=== PATIENT | female | born 1970 | race Caucasian/White ===

== ENCOUNTER 2019-11-26 22:20 | Outpatient (REF) | payer OTHER, SELFPAY ==
[2019-11-26 22:07] LABS: Abs Immature Grans 0.04 10^3/uL (0.0-0.06); Absolute Basophil Count 0.02 10^3/uL (0.0-0.2); Absolute Eosinophil Count 0.13 10^3/uL (0.0-0.7); Basophils % 0.2; Eosinophils % 1.1; HCT 38.6 % (36.0-46.0); HGB 12.9 g/dL (11.2-15.7); Immature Grans % 0.3; Lymphocytes % 22.7; MCH 29.4 pg (27.0-33.0); MCHC 33.4 % (32.0-36.0); MCV 87.9 fL (80-95); MPV 10.2 fL (8.0-11.0); Neutrophils % 70.7; Nucleated RBC 0 %; Platelet Count 398 10^3/uL (130-400); RBC 4.39 10^6/uL (3.93-5.22); RDW 11.9 % (11.7-14.6); RDW-SD 38.5 fL
[2019-11-26 22:09] LABS: Absolute Neutrophil Count 8.41 10^3/uL (1.2-6.7)
[2019-11-26 22:26] LABS: ALT 29 U/L (14-59); AST 13 U/L (15-37); Albumin 3.8 g/dL (3.4-5.0); Alkaline Phosphatase 102 U/L (46-116); Anion Gap 9.7 mmol/L (3-11); BUN 9 mg/dL (7-18); Bilirubin, Total 0.3 mg/dL (0.2-1.0); CO2 26.3 mmol/L (21.0-32.0); Calcium 8.9 mg/dL (8.5-10.1); Chloride 102 mmol/L (98-107); Glucose 176 mg/dL (74-106); Magnesium 1.9 mg/dL (1.8-2.4); Potassium 3.4 mmol/L (3.5-5.1); Sodium 138 mmol/L (136-145); TSH (W/Ref FT4) 2.25 uIU/mL (0.36-3.74); Total Protein 7.3 g/dL (6.4-8.2)
[2019-11-28 10:20] LABS: Lyme Ab w Rflx to Lyme Confirm Negative (Negative)
[2019-11-29 19:44] LABS: Anaplasma phagocytophilum Negative (Negative); B. miyamotoi PCR Negative (Negative); Babesia divergens/MO-1 Negative (Negative); Babesia duncani Negative (Negative); Babesia microti Negative (Negative); Ehrlichia chaffeensis Negative (Negative); Ehrlichia ewingii/canis Negative (Negative); Ehrlichia muris eauclairensis Negative (Negative)
== END 2019-11-26 22:40 ==
LOC: LBN 22:20
PROVIDERS: Visit Provider Physician Assistant
DX: R20.0 Anesthesia of skin (principal)
CPT/HCPCS: 80053; 87798; 83735; 84443; 85025; 86618

== ENCOUNTER 2020-02-12 01:08 | Outpatient (CLI) | payer OTHER, SELFPAY ==
--- NOTE | 2020-02-12 10:41 | DI.MAMMO_ITS ---
EXAM: MG MAMMO SCREENING CLINICAL HISTORY: screening.Z12.39. TECHNIQUE: Bilateral full field digital CC and MLO mammographic images were obtained with 3D tomosyn thesis and utilizing computer aided detection (CAD). COMPARISON: Prior mammograms performed in 2010. No other mammograms for comparison. FINDINGS: There are no new dominant masses nor malignant appearing microcalcification groups. There is no new architectural distortion nor skin thickening-retraction. IMPRESSION: No radiographic evidence of malignancy. BI-RADS Category 1 - Negative Breast Density - Category B - Scattered areas of fibroglandular density Breast density Category C or D implies that the patient has dense breast tissue. Dense breast tissue can make it harder to find cancer on a mammogram. Dense breast tissue is also associated with an incr eased risk of breast cancer. This information about the result of the mammogram report was provided to the patient to raise their awareness. Use this report when you speak with the patient about their risks for breast cancer, which includes their family history. At that time, you may recommend additional screening tests (Ultrasoun d or MRI) as these tests may add significant information. A negative radiographic report should not delay biopsy if a dominant or clinically suspicious mass is present. Up to ten percent of cancers are not identified on mammography. A negative report may reinforce clinical impression. Adenosis and dense breasts may obscure an underlying neoplasm. False positive reports average 6 to 10%. Patient will receive a letter notifying them of these results.
== END 2020-02-12 01:28 ==
DX: Z12.31 Encounter for screening mammogram for malignant neoplasm of breast (principal)
CPT/HCPCS: 77063; 77067

== ENCOUNTER 2020-02-20 03:31 | Outpatient (CLI) | payer OTHER, SELFPAY ==
[2020-02-22 19:04] LABS: COVID-19 RT-PCR Result NEGATIVE (Negative)
== END 2020-02-20 03:51 ==
PROVIDERS: Visit Provider Student in an Organized Health Care Education/Training Program
DX: Z11.59 Encounter for screening for other viral diseases (principal); Z01.818 Encounter for other preprocedural examination
CPT/HCPCS: U0003

== ENCOUNTER 2020-02-25 12:34 | Day surgery (SDC) | payer OTHER, SELFPAY ==
[2020-02-25 12:49] VITALS: BP 129/84; PULSE 76; RESP 18; TEMP 36.5; O2SAT 98
[2020-02-25] MEDS: Lactated Ringers 1,000 ML 80 ML IV (13:10)
--- NOTE | 2020-02-25 13:53 | W.PM.DSUDISC ---
Documented by User: FREEMAN Evans 02/25/20 13:59 Discharge Plan Disposition Patient Disposition: HOME Condition: Good Discharge Details Attending Provider: Neil Kerns Primary Care Provider: Emiliana Baird Home Meds and New Rx's Prescriptions: New ibuprofen 600 mg tablet 600 mg PO TID PRN (Reason: pain) Qty: 30 RF: 0 acetaminophen 500 mg capsule 1,000 mg PO Q8H PRN PRNQty: 90 RF: 0 Continued omeprazole 20 mg capsule,delayed release(DR/EC) 20 mg PO DAILY Qty: 90 RF: 1 calcium carbonate [Tums] 200 mg calcium (500 mg) tablet,chewable 200 mg PO BID PRNRF: 0 Discontinued ibuprofen 200 mg capsule 400 mg PO TID PRNRF: 0 Discharge Instructions Stand Alone Forms: Luis F Burrell Tunnel Release Referrals: Neil Kerns MD [ [facility] STAFF PHYSICIAN] - Activity:: Activity as Tolerated Remove Dressings/Wound Care:: 48 hours Shower/Bathe:: 48 hours Diet:: As Tolerated Discharge Orders Discharge Orders: Discharge Order (Routine); Ordered 02/25/20 Ordered By: Nicanor Borges DS: Diagnosis Discharge Diagnosis (1) Left carpal tunnel syndrome: Status: Acute Documented by User: Neil Kerns MD 02/25/20 14:01 Discharge Plan Disposition Patient Disposition: HOME Condition: Good Discharge Details Attending Provider: Neil Kerns Primary Care Provider: Emiliana Baird Home Meds and New Rx's Prescriptions: New ibuprofen 600 mg tablet 600 mg PO TID PRN (Reason: pain) Qty: 30 RF: 0 acetaminophen 500 mg capsule 1,000 mg PO Q8H PRN PRNQty: 90 RF: 0 Continued omeprazole 20 mg capsule,delayed release(DR/EC) 20 mg PO DAILY Qty: 90 RF: 1 calcium carbonate [Tums] 200 mg calcium (500 mg) tablet,chewable 200 mg PO BID PRNRF: 0 Discontinued ibuprofen 200 mg capsule 400 mg PO TID PRNRF: 0 Discharge Instructions Stand Alone Forms: Luis F Burrell Tunnel Release Referrals: Neil Kerns MD [ [facility] STAFF PHYSICIAN] - Activity:: Activity as Tolerated Remove Dressings/Wound Care:: 48 hours Shower/Bathe:: 48 hours Diet:: As Tolerated Discharge Orders Discharge Orders: Discharge Order (Routine); Ordered 02/25/20 Ordered By: Nicanor Borges
[2020-02-25] MEDS: ceFAZolin 2 GM/50 ML BAG IVPB (14:07)
[2020-02-25] MEDS: Sodium Bicarbonate 50 MEQ/50 ML VIAL (14:17)
--- NOTE | 2020-02-25 14:47 | W.PM.OP ---
Date of service: 02/25/20 Time of Service: 14:48 Operative Note Operative Note DATE OF PROCEDURE: 02/25/20 PRE-OP DIAGNOSIS: Left Carpal Tunnel Syndrome POST-OP DIAGNOSIS: same PROCEDURE: Left Endoscopic Carpal Tunnel Release SURGEON: Neil Kerns ANESTHESIA: GETMarilynn ESTIMATED BLOOD LOSS: 0 PATHOLOGY: none sent TOURNIQUET TIME: 4 COMPLICATIONS: None Patient was transported to: same day Patient's condition: stable Indications: I have seen Mary Carmen in clinic for symptoms of carpal tunnel syndrome. The numbness, tingling, and pain limited function. Clinical exam findings confirmed the diagnosis of carpal tunnel syndrome. Nonoperative measures such as bracing, time, activity modifications had been tried but disability and pain persisted. I discussed carpal tunnel release with the patient. I reviewed the risks of the procedure to include, but not limited to, bleeding, infection, pain, stiffness, incomplete release, damage to nerves or vessels, persistent numbness, recurrence. Despite these risks, the patient elected to proceed. Findings: There was tightened carpal tunnel. This was dilated and released successfully with the endoscopic with increased space within the tunnel. The antebrachial fascia was released proximally freeing the median nerve at the wrist. Procedure Description: Mary Carmen was greeted in the preoperative holding area where the correct side was identified and marked. The consent was reviewed with the patient and signed. The history and physical was updated. All questions were answered. She was taken back to the operating room. The patient was placed into the supine position on the operating room table with the left arm on an arm board. A nonsterile tourniquet was placed high onto the arm. All bony prominences were well padded. Prophylactic antibiotics in the form of Cefazolin were administered. The left arm was then prepped with Chloraprep and draped in a standard fashion with stockinette and extremity drape. A timeout to confirm correct identity, side and site, procedure, allergies, anesthesia, and medical concerns was performed. The surgical site was marked in the volar wrist creases in line with the radial border of the fourth ray. This area was anesthetized with approximately 6cc of 1% Lidocaine. The limb was then exsanguinated with an Esmarch. The skin was incised with a 15 blade, approximately 1cm. The skin only was cut and the deeper tissue was dissected bluntly with a tenotomy scissor, avoiding passing nerve and venous structures. The fascia was penetrated and opened bluntly. A two-prong skin hook was placed under this proximal fascial edge. A series of hamate finders were used to identify and dilate the carpal tunnel. Synovial elevator was used to free synovial attachments to the underside of the transverse carpal ligament. My thumb was kept in the palm to lucille the distal extent of the carpal tunnel and correctly position the hand. The Microaire endoscope was inserted without difficulty and without resistance. Excellent visualization showed horizontally running fibers of the transverse carpal ligament (TCL). The distal extent of the TCL was visualized and the end of the scope palpated with the thumb. The blade was elevated and withdrawn from distal to proximal. The TCL was split into two flaps. The endoscope was reinserted to confirm complete release and any remnant ligament was incised. The scope was withdrawn and the proximal aspect of the carpal tunnel was grossly inspected and appeared release with the median nerve visible. The antebrachial fascia at the level of the wrist was then freed from the overlying skin and then the underlying median nerve with blunt dissection. This was transected longitudinally for about 3cm proximal to the wrist incision. The wound was then irrigated with easy flow of irrigant distally and proximally. The incision was closed with a single 4-0 Nylon suture. The wound was dressed with Xeroform, Gauze, Kerlix and Roberto. The tourniquet was deflated with the initial dressing and held with some pressure. Blood flow returned easily to all digits with capillary refill less than 2 seconds. The patient tolerated the procedure well and was returned to the Same Day Surgery area in a stable condition suffering no known complication.
[2020-02-25 14:54] VITALS: BP 112/65; PULSE 83; RESP 17; TEMP 36.2; O2SAT 99
== END 2020-02-25 15:25 | disposition home or self-care (01) ==
PROVIDERS: Visit Provider Student in an Organized Health Care Education/Training Program
PROC: 01N54ZZ Release Median Nerve, Percutaneous Endoscopic Approach (ICD-10-PCS; CPT 29848; principal; 2020-02-25 14:00)
DX: G56.02 Carpal tunnel syndrome, left upper limb (principal); K21.9 Gastro-esophageal reflux disease without esophagitis
CPT/HCPCS: 29848; J0690; J1885; J2250; J2405; J2704

== ENCOUNTER 2021-01-17 00:25 | Outpatient (CLI) | payer OTHER, SELFPAY ==
--- NOTE | 2021-01-17 12:54 | DI.MAMMO_ITS ---
Exam(s) MAMMO SCREENING EXAM: MAMMO SCREENING CLINICAL HISTORY: screening,Z12.39 TECHNIQUE: Bilateral full field digital CC and MLO mammographic images were obtained with 3D tomosyn thesis and utilizing computer aided detection (CAD). COMPARISON: Available for comparison. FINDINGS: Masses/Architectural Distortion: None seen. Microcalcifications: No suspicious pleomorphic-type are seen. Skin Thickening/Nipple Retraction: None. IMPRESSION: 1. No significant interval change with no specific features of malignancy noted. 2. Unless there is more urgent need, screening mammography is recommended, as per [employer] guidelines. BI-RADS Category 1 - Negative Breast Density - Category B - Scattered areas of fibroglandular density Breast density category C or D implies that the patient has dense breast tissue. Dense breast tissue is very common and is not abnormal but dense breast tissue can make it harder to find cancer on a ma mmogram. Also, dense breast tissue may increase their breast cancer risk. This information about the result of the mammogram report was provided to the patient to raise their awareness. Use this report when you speak with the patient about their risks for breast cancer, which includes their family hist ory. At that time, you may recommend for more screening tests (Ultrasound or MRI) as they might be us eful based on their risk. A negative radiographic report should not delay biopsy if a dominant or clinically suspicious mass is present. Up to ten percent of cancers are not identified on mammography. A negative report may reinforce clinical impression. Adenosis and dense breasts may obscure an underlying neoplasm. False positive reports average 6 to 10%. Patient will receive a letter notifying them of these results.
== END 2021-01-17 00:45 ==
DX: Z12.31 Encounter for screening mammogram for malignant neoplasm of breast (principal)
CPT/HCPCS: 77063; 77067

== ENCOUNTER 2021-01-21 04:08 | Outpatient (CLI) | payer OTHER, SELFPAY ==
[2021-01-21 08:55] LABS: Albumin 3.8 g/dL (3.4-5.0); BUN 15 mg/dL (7-18); CREATININE 0.6 mg/dL (0.55-1.02); Calcium 9.1 mg/dL (8.5-10.1); Calculated LDL 134 mg/dL (<100); Cholesterol 195 mg/dL (<200); Glucose 106 mg/dL (74-106); HDL Cholesterol 52 mg/dL (40-60); Total Protein 7.4 g/dL (6.4-8.2); Triglyceride 46 mg/dL (<150)
[2021-01-21 08:56] LABS: Alkaline Phosphatase 104 U/L (46-116); Anion Gap 8.8 mmol/L (3-11); Bilirubin, Total 0.2 mg/dL (0.2-1.0); CO2 27.2 mmol/L (21.0-32.0); Chloride 107 mmol/L (98-107); Potassium 4.2 mmol/L (3.5-5.1); Sodium 143 mmol/L (136-145)
[2021-01-21 08:57] LABS: ALT 50 U/L (14-59); AST 16 U/L (15-37)
== END 2021-01-21 04:09 | disposition home or self-care (01) ==
LOC: LBO 04:08
DX: Z13.220 Encounter for screening for lipoid disorders (principal); Z00.00 Encounter for general adult medical examination without abnormal findings
CPT/HCPCS: 36415; 80053; 80061

== ENCOUNTER → 2022-01-23 01:49 | Outpatient (CLI) | payer OTHER, SELFPAY ==
--- NOTE | 2022-01-23 15:05 | DI.MAMMO_ITS ---
Exam(s) MAMMO SCREENING EXAM: MAMMO SCREENING CLINICAL HISTORY: screening,Z12.39 TECHNIQUE: Mammograms were interpreted according to the usual protocol including computer analysis w [employer] CAD system, tomosynthesis and C-view imaging. COMPARISON: 2019 and 2020 FINDINGS: The breasts are composed of scattered fibroglandular densities, Breast Density category B. No suspicious masses or suspicious microcalcifications are seen. No skin thickening or abnormal axillary lymph nodes are seen. There has been no significant change from prior exams. IMPRESSION: BI-RADS Category 1, Negative mammogram Yearly screening mammography is recommended. Breast Density - Category B, scattered fibroglandular densities. A negative radiographic report should not delay biopsy if a dominant or clinically suspicious mass is present. Up to ten percent of cancers are not identified on mammography. A negative report may reinforce clinical impression. Adenosis and dense breasts may obscure an underlying neoplasm. False positive reports average 6 to 10%. Patient will receive a letter notifying them of these results.
== END ==
PROVIDERS: PCP Nurse Practitioner Family; Visit Provider Emergency Medicine
DX: Z12.31 Encounter for screening mammogram for malignant neoplasm of breast (principal)
CPT/HCPCS: 77063; 77067

== ENCOUNTER 2022-03-20 03:17 | Outpatient (CLI) | payer OTHER, SELFPAY ==
[2022-03-20 13:30] LABS: ALT 35 U/L (14-59); AST 19 U/L (15-37); Alkaline Phosphatase 109 U/L (46-116); Anion Gap 9.1 mmol/L (3-11); BUN 17 mg/dL (7-18); Bilirubin, Total 0.2 mg/dL (0.2-1.0); CO2 26.9 mmol/L (21.0-32.0); CREATININE 0.8 mg/dL (0.55-1.02); Calcium 9.3 mg/dL (8.5-10.1); Chloride 104 mmol/L (98-107); Estimated GFR 89.71 (mL/min/1.73m2); Glucose 113 mg/dL (74-106); Potassium 3.9 mmol/L (3.5-5.1); Sodium 140 mmol/L (136-145); TSH (W/Ref FT4) 3.13 uIU/mL (0.36-3.74); Total Protein 8.2 g/dL (6.4-8.2)
== END 2022-03-20 03:18 | disposition home or self-care (01) ==
LOC: LBO 03:17
PROVIDERS: PCP Nurse Practitioner Family; Visit Provider Nurse Practitioner Family
DX: E66.9 Obesity, unspecified (principal); K21.9 Gastro-esophageal reflux disease without esophagitis; L65.9 Nonscarring hair loss, unspecified; N32.81 Overactive bladder; R03.0 Elevated blood-pressure reading, without diagnosis of hypertension
CPT/HCPCS: 36415; 80053; 84443

== ENCOUNTER 2022-03-24 11:20 | Day surgery (SDC) | payer OTHER, SELFPAY ==
--- NOTE | 2022-03-23 20:44 | W.PM.DSUDISC ---
Date of service: 03/24/22 Time of Service: 13:24 Discharge Plan Disposition Patient Disposition: Home Condition: Good Discharge Details Reason For Visit: EGD and colonoscopy Attending Provider: Manuel Merrill Primary Care Provider: Briana Mosqueda Home Meds and New Rx's Prescriptions: Continued oxybutynin chloride 15 mg tablet extended release 24hr 15 mg PO DAILY Qty: 90 3RF Hold Instructions: Home Medication placed on hold at Doctor's office Rx Instructions: REPLACES mirabegron famotidine 20 mg tablet 20 mg PO BID Qty: 180 3RF Discontinued bisacodyl [Dulcolax (bisacodyl)] 5 mg tablet,delayed release (DR/EC) 5 mg PO ONCE Qty: 4 0RF Rx Instructions: Take according to provider's instructions for colonoscopy prep. polyethylene glycol 3350 17 gram/dose powder 17 g PO ONCE Qty: 238 0RF Rx Instructions: To be taken as directed by prescriber's office for colonoscopy prep. Discharge Instructions Additional Instructions: 1. If tolerated, consume a soft, low fiber diet for 1-2 days. 2[address] Do not drive, drink alcohol, operate machinery, make critical decisions, or do activities that require coordination or balance for 24 hours. 3. Because air was put into your colon during the procedure, expelling air from your rectum (passing gas or farting) is normal. 4. You may not have a bowel movement for 1-3 days because of the colonoscopy prep. This is normal. 5. You may experience a sore throat for 24 to 48 hours. You may use throat lozenges or gargle with warm salt water to relieve the discomfort. 6. Because air was put into your stomach during the procedure, you may experience some belching. 7. Go directly to the emergency room if you notice any of the following: Develop chills (warm to touch), or if you have a thermometer and your temperature is above 101 Difficulty breathing or difficultly swallowing Persistent vomiting Severe abdominal pain, other than gas cramps Severe chest pain Black, tarry stools Any bleeding ? exceeding one tablespoon 8. Call your physician if the site where your intravenous was started becomes red, swollen, painful, and warm to touch. 9. Your physician has reviewed your pre-procedure medications. Please continue to take those medications as previously ordered. You will be given specific information/education regarding any changes to your medications before leaving. Activity:: Activity as Tolerated Diet:: As Tolerated Discharge Orders Discharge Orders: Discharge Order (Routine); Ordered 03/23/22 Ordered By: Manuel Merrill DS: Diagnosis Discharge Diagnosis (1) GERD (gastroesophageal reflux disease): Status: Chronic Asessment and Plan: Mary Carmen, your stomach looked very normal, with no signs of inflammation. I did perform some random biopsies to rule out potential sources of gastritis. I will call you when I have those results available. (2) Screening for colon cancer: Status: Acute Asessment and Plan: Your colonoscopy was totally normal. You will need a follow-up colonoscopy in 10 years
--- NOTE | 2022-03-23 20:46 | ENDO_ITS ---
Date of service: 03/24/22 Time of Service: 13:14 Endoscopy Report DATE OF PROCEDURE: 03/24/22 PRE-OP DIAGNOSIS: GERD and sceening colonoscopy POST-OP DIAGNOSIS: other (Normal EGD, normal colonoscopy) PROCEDURE: EGD and colonoscopy SURGEON: Manuel Merrill ANESTHESIA TYPE: General:No Airway ESTIMATED BLOOD LOSS: 15 PATHOLOGY: other (Gastric antral and body biopsies) COMPLICATIONS: None DISPOSITION: same day INDICATIONS: Mary Carmen is a 51-year-old woman who has been experiencing dyspepsia, and mild symptoms of gastroesophageal reflux disease. Additionally, she is due for screening colonoscopy PREP: Miralax/Dulcolax PROCEDURE START TIME: 12:55 PROCEDURE END TIME: 13:14 COLONOSCOPY RETRACTION TIME: 10 FINDINGS: Normal EGD, normal colonoscopy PROCEDURE DESCRIPTION: After the initiation of monitored anesthetic care, and with the assistance of a bite block, I advanced a standard gastroscope through the mouth past the hypopharynx and into the esophagus.? Under the direct vision of the scope, I advanced down the esophagus into the stomach.? Once I entered the stomach, I performed a brief inspection, followed by retroflexion towards the gastric cardia.? This appeared normal.? After that, I gently advanced the scope around t he incisura angularis and examined the pylorus.? This also appeared normal.? Next, I advanced the scope through the pylorus into the duodenum.? The mucosa was pink and healthy appearing.? There were no abnormalities.? I was able to visualize bile draining into the duodenum through the ampulla Vater. ?Next, I began retracting the endoscope.? I then gently desufflated some of the stomach, and withdrew the endoscope into the distal esophagus. The Z-line was totally normal-appearing, and the GE junction was right around 34 cm.. ?Finally, I withdrew the scope along the length of the esophagus taking great care to examine the entirety of the mucosa.? I did not appreciate any abnormalities. 3 We then repositioned and at into the left lateral decubitus position, I began by performing an external anorectal exam.? Perineum and skin were normal, as was the anal verge.? There was evidence of external hemorrhoids.? Next, I performed a digital rectal exam.? There was a tiny fissure in the posterior position.? Next, I advanced a colonoscope into the rectal vault.? I performed retroflexion.? This was normal.? Using insufflation, I then advanced the colonoscope beyond the rectal folds and into the sigmoid colon before advancing towards the cecum.? The quality of the prep was [].? The scope was noted to be in the cecum by identification of the ileocecal valve and appendiceal orifice.? I then began withdrawing the colonoscope using repeated irrigation as necessary for full evaluation of the colonic mucosa. ?Once the scope was withdrawn to the level of the rectum, great care was taken to examine portions of the rectal folds.? I did not see any evidence of any polyps, malignancy, diverticulosis, or other pathology. Finally, the scope was withdrawn and the patient was brought to the same-day surgery recovery unit as the anesthetic wore off. ?The findings and instructions were shared with the patient prior to discharge.
[2022-03-24 11:27] VITALS: BP 119/75; PULSE 85; RESP 16; TEMP 36.7; O2SAT 97
[2022-03-24] MEDS: Lactated Ringers 1,000 ML 80 ML IV (11:46)
--- NOTE | 2022-03-24 12:11 | W.ANESPRE ---
General Info Date of Service Date Performed: 03/24/22 Height: 5 ft 3 in Weight: 79.2 kg Body Mass Index (BMI): 30.9 Surgical Procedure: Operation Date: 03/24/22 14:35 Proposed Procedure Side Surgeon p Colonoscopy/Gastroscopy Manuel Merrill MD Meds Allergies and Home Medications Allergies Allergy/AdvReac Type Severity Reaction Status Date / Time No Known Allergies Allergy Verified 03/23/22 13:47 Home Medication Medication Instructions Recorded oxybutynin chloride 15 mg 15 mg PO DAILY #90 tabs 12/30/21 tablet,extended release 24 hr famotidine 20 mg tablet 20 mg PO BID #180 tabs 02/27/22 Current Visit Medications: Current Medications Generic Name Dose Route Start Last Admin Trade Name Freq PRN Reason Stop Dose Admin Hyoscyamine Sulfate 0.125 mg 03/23/22 20:47 Hyoscyamine 0.125 Mg Sl/Oral/Chew SL DIRECTED PRN Ringer's Solution 1,000 mls @ 80 mls/hr 03/24/22 06:00 03/24/22 11:46 IV 03/24/22 23:59 80 mls/hr INFUSION JAIME Administration IV Miscellaneous Supplies 1 each 03/24/22 06:00 Iv Access IV 03/24/22 23:59 DIRECTED JAIME Ondansetron HCl 4 mg 03/23/22 20:47 Ondansetron 4 Mg/2 Ml Vial IVP Q4H PRN PRN Nausea / Vomiting Sodium Chloride 0 ml 03/24/22 06:00 Normal Saline Flush 10 Ml Syr IV 03/24/22 23:59 PRN PRN Sodium Chloride 0 ml 03/24/22 06:00 Normal Saline 10 Ml Vial IJ 03/24/22 23:59 DIRECTED PRN Sterile Water 0 ml 03/24/22 06:00 Water,Injection,Sterile 10 Ml Vial IJ 03/24/22 23:59 DIRECTED PRN PFSH Active Problems Active Problems: Problem Status Onset Code Bilateral hand numbness R20.0 Alopecia L65.9 GERD (gastroesophageal reflux disease) K21.9 Right carpal tunnel syndrome G56.01 Urinary incontinence R32 Obesity (BMI 30-39.9) E66.9 Elevated BP without diagnosis of hypertension R03.0 OAB (overactive bladder) N32.81 Screening for colon cancer Z12.11 Medical History Medical History Microscopic hematuria Pyloric ulcer associated with Helicobacter pylori (02/08/01) Surgical History Surgical History (Updated 03/24/22 @ 11:38 by Kirsty Lundberg RN) History of carpal tunnel release History of carpal tunnel surgery of left wrist (02/25/20) s/p left ECTR Hysterectomy, Laproscopic (07/25/12) DR. JOHNSON Tobacco Smoking/Tobacco Use Status: Never Passive smoking exposure: Yes Second hand exposure: Yes Alcohol Alcohol Intake: current Alcohol intake frequency: a few times a week Alcohol type: wine Substance Use Substance use: Never Substance use type: does not use Counseling provided: none Vital Signs and Lab Results Vital Signs Most Recent Vital Signs in EMR: Most Recent Vital Signs Temp Pulse Resp BP Pulse Ox 36.7 C 85 16 119/75 97 03/24/22 11:27 03/24/22 11:27 03/24/22 11:27 03/24/22 11:27 03/24/22 11:27 Lab Results Blood Type / Crossmatch: No Data to Display Complete Blood Count: No Data to Display Complete Metabolic Panel: Sodium 140 mmol/L (136-145) 03/20/22 12:51 Potassium 3.9 mmol/L (3.5-5.1) 03/20/22 12:51 Chloride 104 mmol/L (98-107) 03/20/22 12:51 Carbon Dioxide 26.9 mmol/L (21.0-32.0) 03/20/22 12:51 BUN 17 mg/dL (7-18) 03/20/22 12:51 Creatinine 0.8 mg/dL (0.55-1.02) 03/20/22 12:51 Est GFR (CKD-EPI 2020) 89.71 (mL/min/1.73m2) 03/20/22 12:51 Calcium 9.3 mg/dL (8.5-10.1) 03/20/22 12:51 Albumin 4.0 g/dL (3.4-5.0) 03/20/22 12:51 Glucose 113 mg/dL (74-106) H 03/20/22 12:51 Liver Function Panel: Alanine Aminotransferase (ALT/SGPT) 35 U/L (14-59) 03/20/22 12:51 Aspartate Amino Transf (AST/SGOT) 19 U/L (15-37) 03/20/22 12:51 Coagulation Panel: No Data to Display Cardiac Panel: No Data to Display Arterial Blood Gas: No Data to Display Venous Blood Gas: No Data to Display Pancreas Panel: No Data to Display Thyroid Panel: Thyroid Stimulating Hormone (TSH) 3.13 uIU/mL (0.36-3.74) 03/20/22 12:51 Infectious Disease: No Data to Display Blood Cultures: No Data to Display Toxicology Panel: No Data to Display Panel: No Data to Display Anesthesia Assessment and Plan Anesthesia History Personal History: No History of Anesthesia Complications Family History: No Family History of Anesthesia Complications Exercise Tolerance Exercise Tolerance: Metabolic Equivalents>4 Pertinent Negatives Pertinent Negatives: No Symptoms of GERD, No Major Cardiovascular Symptoms or Complaints and No Major Pulmonary Symptoms or Complaints Cardiac & Pulmonary Exam Cardiac Exam: Normal S1/S2 Heart Sounds Pulmonary Exam: Clear Bilateral Breath Sounds Implantable Cardiac Device Does patient have a Pacemaker or an ICD?: No Airway Exam Known Difficult Airway: No Mallampati Class: 1 Mouth Opening: Normal (> 3cm) Thyromental Distance: Greater than 3 cm Neck Range of Motion: Full ROM Neck Circumference: Normal Teeth Condition: Normal Dentition ASA Classification ASA Score: ASA 2 Emergency Case?: No NPO Status NPO Status: NPO Clears >2 hours, Solids >8 hours Status Status: History of Hysterectomy Anesthesia Plan Resuscitation Status: Full Code Anesthesia Technique: General Anesthesia Airway Planned: Natural Airway Monitors Used: Standard Monitors
[2022-03-24 12:15] VITALS: BMI 30.9
--- NOTE | 2022-03-24 12:51 | STOM_PTH ---
PATIENT: Mary Carmen Tsang LOC: [facility] U#:[id number] AGE/SX: 51/F ROOM: RE03/24/[address]: Manuel Merrill MD : 1970 BED: DIS: 03/24/2022 SPEC #: [id number] RECD: 03/24/22 13:33 STATUS: [facility] #: [id number] DARWIN: 03/24/22 12:[address]: Manuel Merrill DEPT: Surgical Specimen RECD BY: Page Can ENTERED: 03/24/22 13:35 SP TYPE: STOMACH OTHR DR: Briana Mosqueda, PARLIAMENTARY LIBRARIAN Tissues: 1 - STOMACH BIOPSY 2 - STOMACH BIOPSY Procedures: GROSS AND MICRO LEVEL 4 IMMUNOPEROXIDASE STAIN Comments: [id number]
[2022-03-24 13:24] VITALS: BP 113/63; PULSE 83; RESP 16; TEMP 36.5; O2SAT 96
[2022-03-24 13:54] VITALS: BP 117/60; PULSE 84; RESP 16; TEMP 36.7; O2SAT 96
--- NOTE | 2022-03-24 14:48 | W.ANESPOSTOP ---
Postoperative Evaluation Date, Time and Location Date Performed: 03/24/22 Time Performed: 13:56 Patient Location: Day Surgery Unit Vital Signs Most Recent Imported Vital Signs: Most Recent Vital Signs Temp Pulse Resp BP Pulse Ox 36.7 C 84 16 117/60 96 03/24/22 13:54 03/24/22 13:54 03/24/22 13:54 03/24/22 13:54 03/24/22 13:54 Pain Score Most Recent Pain Score: Most Recent Pain Score Pain Level 0 03/24/22 13:54 Assessment Mental Status: Awake (Alert & Oriented to Patient Baseline) Airway and Respiratory Function: Patent airway with normal (patient baseline) respiratory exam Cardiovascular Function: Hemodynamically Stable Hydration Status: Adequately Hydrated Nausea & Vomiting: No Nausea or Vomiting Pain: Pt. Denies Any Pain Peripheral Nerve Block: Patient did not receive a nerve block
== END 2022-03-24 14:58 | disposition home or self-care (01) ==
PROVIDERS: PCP Nurse Practitioner Family; Visit Provider Surgery
PROC: (CPT 45378; principal; 2022-03-24 14:30)
DX: K21.9 Gastro-esophageal reflux disease without esophagitis (principal); Z12.11 Encounter for screening for malignant neoplasm of colon; K64.4 Residual hemorrhoidal skin tags; K31.89 Other diseases of stomach and duodenum
CPT/HCPCS: 45378; 43239; 88305; 88361

== ENCOUNTER → 2023-02-20 01:21 | Outpatient (CLI) | payer OTHER, SELFPAY ==
--- NOTE | 2023-02-20 07:30 | DI.MAMMO_ITS ---
Exam(s) MAMMO SCREENING EXAM: MAMMO SCREENING CLINICAL HISTORY: screening,Z12.39 TECHNIQUE: Bilateral full field digital CC and MLO mammographic images were obtained with 3D tomosyn thesis and utilizing computer aided detection (CAD). COMPARISON: Available for comparison. FINDINGS: Masses/Architectural Distortion: None seen. Microcalcifications: No suspicious pleomorphic-type are seen. Skin Thickening/Nipple Retraction: None. IMPRESSION: 1. No significant interval change with no specific features of malignancy noted. 2. Unless there is more urgent need, screening mammography is recommended, as per [place] [employer] guidelines. BI-RADS Category 1 - Negative Breast Density - Category B - Scattered areas of fibroglandular density Breast density category C or D implies that the patient has dense breast tissue. Dense breast tissue is very common and is not abnormal but dense breast tissue can make it harder to find cancer on a ma mmogram. Also, dense breast tissue may increase their breast cancer risk. This information about the result of the mammogram report was provided to the patient to raise their awareness. Use this report when you speak with the patient about their risks for breast cancer, which includes their family hist ory. At that time, you may recommend for more screening tests (Ultrasound or MRI) as they might be us eful based on their risk. A negative radiographic report should not delay biopsy if a dominant or clinically suspicious mass is present. Up to ten percent of cancers are not identified on mammography. A negative report may reinforce clinical impression. Adenosis and dense breasts may obscure an underlying neoplasm. False positive reports average 6 to 10%. Patient will receive a letter notifying them of these results.
== END ==
PROVIDERS: PCP Nurse Practitioner Family; Visit Provider Nurse Practitioner Family
DX: Z12.31 Encounter for screening mammogram for malignant neoplasm of breast (principal)
CPT/HCPCS: 77063; 77067

== ENCOUNTER 2023-03-07 06:05 | Day surgery (SDC) | payer OTHER, SELFPAY ==
[2023-03-07 06:22] VITALS: BP 130/81; PULSE 87; RESP 16; TEMP 36.5; O2SAT 96
[2023-03-07] MEDS: Lactated Ringers 1,000 ML 80 ML IV (06:39)
--- NOTE | 2023-03-07 07:03 | W.ANESPRE ---
General Info Date of Service Date Performed: 03/07/23 Height: 5 ft 3 in Weight: 85 kg Body Mass Index (BMI): 33.2 Surgical Procedure: Operation Date: 03/07/23 07:40 Proposed Procedure Side Surgeon p Wrist ECTR Right Neil Kerns MD Meds Allergies and Home Medications Allergies Allergy/AdvReac Type Severity Reaction Status Date / Time No Known Allergies Allergy Verified 03/07/23 06:30 Home Medication Medication Instructions Recorded famotidine 20 mg tablet 20 mg PO BID PRN 03/06/23 Current Visit Medications: Current Medications Generic Name Dose Route Start Last Admin Trade Name Freq PRN Reason Stop Dose Admin Ringer's Solution 1,000 mls @ 80 mls/hr 03/07/23 06:00 03/07/23 06:39 IV 04/05/23 23:59 80 mls/hr INFUSION JAIME Administration Cefazolin Sodium/Dextrose 2 gm in 50 mls @ 100 mls/hr 03/07/23 06:00 Ancef Duplex IVPB 03/07/23 16:00 PREOP JAIME IV Miscellaneous Supplies 1 each 03/07/23 06:00 Iv Access IV 04/05/23 23:59 DIRECTED JAIME Sodium Chloride 0 ml 03/07/23 06:00 Normal Saline Flush 10 Ml Syr IV 04/05/23 23:59 PRN PRN Sodium Chloride 0 ml 03/07/23 06:00 Normal Saline 10 Ml Vial IJ 04/05/23 23:59 DIRECTED PRN Sterile Water 0 ml 03/07/23 06:00 Water,Injection,Sterile 10 Ml Vial IJ 04/05/23 23:59 DIRECTED PRN PFSH Active Problems Active Problems: Problem Status Onset Code Pre-diabetes R73.03 Screening for colon cancer Z12.11 OAB (overactive bladder) N32.81 Elevated BP without diagnosis of hypertension R03.0 Obesity (BMI 30-39.9) E66.9 Urinary incontinence R32 Right carpal tunnel syndrome G56.01 GERD (gastroesophageal reflux disease) K21.9 Alopecia L65.9 Bilateral hand numbness R20.0 Medical History Medical History Pyloric ulcer associated with Helicobacter pylori (02/08/01) Microscopic hematuria Surgical History Surgical History History of carpal tunnel release History of carpal tunnel surgery of left wrist (02/25/20) s/p left ECTR Hysterectomy, Laproscopic (07/25/12) DR. JOHNSON Tobacco Smoking/Tobacco Use Status: Never Passive smoking exposure: Yes Second hand exposure: Yes Alcohol Alcohol Intake: current Alcohol intake frequency: a few times a week Alcohol type: beer, wine and hard liquor Substance Use Substance use: Never Substance use type: does not use Counseling provided: none Vital Signs and Lab Results Vital Signs Most Recent Vital Signs in EMR: Most Recent Vital Signs Temp Pulse Resp BP Pulse Ox 36.5 C 87 16 130/81 96 03/07/23 06:22 03/07/23 06:22 03/07/23 06:22 03/07/23 06:22 03/07/23 06:22 Lab Results Blood Type / Crossmatch: No Data to Display Complete Blood Count: No Data to Display Complete Metabolic Panel: No Data to Display Liver Function Panel: No Data to Display Coagulation Panel: No Data to Display Cardiac Panel: No Data to Display Arterial Blood Gas: No Data to Display Venous Blood Gas: No Data to Display Pancreas Panel: No Data to Display Thyroid Panel: No Data to Display Infectious Disease: No Data to Display Blood Cultures: No Data to Display Toxicology Panel: No Data to Display Panel: No Data to Display Anesthesia Assessment and Plan Anesthesia History Personal History: No History of Anesthesia Complications Family History: No Family History of Anesthesia Complications Exercise Tolerance Exercise Tolerance: Metabolic Equivalents>4 Pertinent Negatives Pertinent Negatives: No Symptoms of GERD, No Major Cardiovascular Symptoms or Complaints and No Major Pulmonary Symptoms or Complaints Cardiac & Pulmonary Exam Cardiac Exam: Normal S1/S2 Heart Sounds Pulmonary Exam: Clear Bilateral Breath Sounds Implantable Cardiac Device Does patient have a Pacemaker or an ICD?: No Airway Exam Known Difficult Airway: No Mallampati Class: 1 Mouth Opening: Normal (> 3cm) Thyromental Distance: Greater than 3 cm Neck Range of Motion: Full ROM Neck Circumference: Normal Teeth Condition: Normal Dentition ASA Classification ASA Score: ASA 2 Emergency Case?: No NPO Status NPO Status: NPO Clears >2 hours, Solids >8 hours Status Status: History of Hysterectomy Anesthesia Plan Resuscitation Status: Full Code Anesthesia Technique: General Anesthesia Airway Planned: Natural Airway Monitors Used: Standard Monitors
[2023-03-07 07:06] VITALS: BMI 33.2
--- NOTE | 2023-03-07 07:21 | W.PM.DSUDISC ---
Date of service: 03/07/23 Time of Service: 07:23 Discharge Plan Disposition Patient Disposition: Home Condition: Good Discharge Details Reason For Visit: Right carpal tunnel syndrome Attending Provider: Neil Kerns Primary Care Provider: Briana Mosqueda Home Meds and New Rx's Prescriptions: New acetaminophen 500 mg tablet 500 mg PO Q6H PRN (Reason: pain) Qty: 60 2RF hydrocodone-acetaminophen 5-325 mg tablet 1 tab PO Q6H PRN (Reason: severe pain) Qty: 4 0RF Rx Instructions: Take one tablet up to every 6 hours as needed for severe postoperative pain Continued famotidine 20 mg tablet 20 mg PO BID PRN Discharge Instructions Stand Alone Forms: Luis F Burrell Tunnel Release Activity:: Elevate Remove Dressings/Wound Care:: 48 hours Shower/Bathe:: 48 hours Diet:: As Tolerated Discharge Orders Discharge Orders: Discharge Order (Routine); Ordered 03/07/23 Ordered By: Lia Blanton
--- NOTE | 2023-03-07 07:22 | W.PREOPHP ---
Assessment and Plan Assessment and plan (1) Right carpal tunnel syndrome: Status: Acute Assessment and plan: Mary Carmen is a 52-year-old female who has carpal tunnel syndrome about the right side. She had a previously successful left carpal tunnel release. She expresses no concerns about today's procedure. Once again I reviewed carpal tunnel release with her. I briefly discussed the technical features. I discussed the risk of the procedure to include bleeding, infection, pain, stiffness, continued numbness, recurrence of symptoms, inflammatory changes within the carpal tunnel resulting in stiffness or recurrence of symptoms. Despite these risk, she elects to proceed. History of Present Illness History of Present Illness Chief Complaint: Right Carpal Tunnel Syndrome Narrative: Mary Carmen is a 52-year-old female who has known carpal tunnel disease about the right side. She has failed other conservative treatments and is here today for carpal tunnel release. She denies any fevers or chills. No chest pain or shortness of breath. No recent illness. Review of Systems All systems reviewed & are unremarkable except as noted in HPI and below PFSH All Active Problems Pre-diabetes (Acute) Screening for colon cancer (Acute) OAB (overactive bladder) (Chronic) Elevated BP without diagnosis of hypertension (Acute) Obesity (BMI 30-39.9) (Chronic) Urinary incontinence (Acute) Right carpal tunnel syndrome (Acute) GERD (gastroesophageal reflux disease) (Chronic) Alopecia (Acute) Bilateral hand numbness (Acute) Medical History Pyloric ulcer associated with Helicobacter pylori (02/08/01) Microscopic hematuria Surgical History History of carpal tunnel release History of carpal tunnel surgery of left wrist (02/25/20) s/p left ECTR Hysterectomy, Laproscopic (07/25/12) DR. JOHNSON Family History Mother Diabetes Hyperlipidemia Brother Heart disease Hyperlipidemia Brother , 49 No problems noted. Brother No problems noted. Daughter No problems noted. Social History Smoking/Tobacco Use Status: Never Second Hand Exposure: Yes Smoking risk assessment performed?: Yes Alcohol Intake: current Alcohol Intake frequency: a few times a week Alcohol type: beer, wine and hard liquor Drug use: Never Substance use type: does not use Counseling given: No Counseling provided: none Adopted: No Caregiver/Support person: No Foster care: No Household members: family and none Housing: house Number of Children: 2 number of grandchildren: 2 Communication Needs: None Education Level: college Do you need help understanding health information?: Rarely current occupation: engineering design Pets and animals: Yes Pets and animals: dog(s) Sexually active: No Do you think of yourself as: lesbian/palma/homosexual Current gender identity: female What is your relationship status?: How often do you talk on the phone with friends or family?: three or more times per week How often do you get together with friends or relatives?: three or more times per week How often do you attend confucianist or hindu services?: decline to answer Do you belong to any clubs or organized social groups?: decline to answer Panel score (0-1 are the most socially isolated patients): 1 What type of physical activity do you participate in: walking Duration: 30-45 minutes/day Frequency: 5-6 times per week Maxine/Oriental Orthodox: None Special maxine needs: No Agree to transfusion: No Seatbelt use: always Helmet use: Yes Helmet use: always Drive intox or ride w/intox pile driver: No Working smoke detector in home: Yes Carbon monox detector in home: Yes Firearms in home: Yes Firearms unloaded and locked: Yes Do you feel safe at home: Yes Meds Allergies and Home Medications Allergies Allergy/AdvReac Type Severity Reaction Status Date / Time No Known Allergies Allergy Verified 03/07/23 06:30 Home Medications Medication Instructions Recorded Confirmed Type famotidine 20 mg tablet 20 mg PO BID PRN 03/06/23 03/07/23 History acetaminophen 500 mg tablet 500 mg PO Q6H PRN pain #60 tabs 03/07/23 Rx hydrocodone 5 mg-acetaminophen 325 1 tab PO Q6H PRN severe pain #4 03/07/23 Rx mg tablet tabs Exam Resp Effort & Inspection: normal respiratory effort Auscultation: clear to auscultation bilaterally Cardio Rate: regular rate Rhythm: regular rhythm Results Last Vital Signs Temp 36.5 C 03/07/23 06:22 Pulse 87 03/07/23 06:22 Resp 16 03/07/23 06:22 BP 130/81 03/07/23 06:22 Pulse Ox 96 03/07/23 06:22
[2023-03-07] MEDS: ceFAZolin 2 GM/50 ML BAG IVPB (07:30)
[2023-03-07] MEDS: Lidocaine 1% Multi-Dose W/EPI 1/100,000 50 ML VIAL (07:36)
[2023-03-07 07:47] VITALS: BP 116/60; PULSE 90; RESP 18; TEMP 36.3; O2SAT 95
--- NOTE | 2023-03-07 07:55 | ROE_ITS ---
Date of service: 03/07/23 Time of Service: 07:30 Operative Note Operative Note DATE OF PROCEDURE: 03/07/23 PRE-OP DIAGNOSIS: Right Carpal Tunnel Syndrome POST-OP DIAGNOSIS: same PROCEDURE: Right Endoscopic Carpal Tunnel Release SURGEON: Neil Kerns ANESTHESIA TYPE: General:No Airway Refer to Anesthesia Record ESTIMATED BLOOD LOSS: 0 PATHOLOGY: none sent TOURNIQUET TIME: 4 COMPLICATIONS: None Patient was transported to: same day Patient's condition: stable Indications: I have seen Mary Carmen in clinic for symptoms of carpal tunnel syndrome. The numbness, tingling, and pain limited function. Clinical exam findings with nerve conduction tests confirmed the diagnosis of carpal tunnel syndrome. Nonoperative measures such as bracing, time, activity modifications had been tried but disability and pain persisted. I discussed carpal tunnel release with the patient. I reviewed the risks of the procedure to include, but not limited to, bleeding, infection, pain, stiffness, incomplete release, damage to nerves or vessels, persistent numbness, recurrence. Despite these risks, the patient elected to proceed. Findings: There was tightened carpal tunnel. This was dilated and released successfully with the endoscopic with increased space within the tunnel. The antebrachial fascia was released proximally freeing the median nerve at the wrist. Procedure Description: Mary Carmen was greeted in the preoperative holding area where the correct side was identified and marked. The consent was reviewed with the patient and signed. The history and physical was updated. All questions were answered. She was taken back to the operating room. The patient was placed into the supine position on the operating room table with the right arm on an arm board. A nonsterile tourniquet was placed high onto the arm. All bony prominences were well padded. Prophylactic antibiotics in the form of Cefazolin were administered. The right arm was then prepped with Chloraprep and draped in a standard fashion with stockinette and extremity drape. A timeout to confirm correct identity, side and site, procedure, allergies, anesthesia, and medical concerns was performed. The surgical site was marked in the volar wrist creases in line with the radial border of the fourth ray. This area was anesthetized with approximately 6cc of 1% Lidocaine. The limb was then exsanguinated with an Esmarch. The skin was incised with a 15 blade, approximately 1cm. The skin only was cut and the deeper tissue was dissected bluntly with a tenotomy scissor, avoiding passing nerve and venous structures. The fascia was penetrated and opened bluntly. A two-prong skin hook was placed under this proximal fascial edge. A series of hamate finders were used to identify and dilate the carpal tunnel. Synovial elevator was used to free synovial attachments to the underside of the transverse carpal ligament. My thumb was kept in the palm to lucille the distal extent of the carpal tunnel and correctly position the hand. The MicroShopintoite e ndoscope was inserted without difficulty and without resistance. Excellent visualization showed horizontally running fibers of the transverse carpal ligament (TCL). The distal extent of the TCL was visualized and the end of the scope palpated with the thumb. The blade was elevated and withdrawn from distal to proximal. The TCL was split into two flaps. The endoscope was reinserted to confirm complete release and any remnant ligament was incised. The scope was withdrawn and the proximal aspect of the carpal tunnel was grossly inspected and appeared release with the median nerve visible. The antebrachial fascia at the level of the wrist was then freed from the overlying skin and then the underlying median nerve with blunt dissection. This was transected longitudinally for about 3cm proximal to the wrist incision. The wound was then irrigated with easy flow of irrigant distally and proximally. The incision was closed with a single 4-0 Nylon suture. The wound was dressed with Xeroform, Gauze, Kerlix and Roberto. The tourniquet was deflated with the initial dressing and held with some pressure. Blood flow returned easily to all digits with capillary refill less than 2 seconds. The patient tolerated the procedure well and was returned to the Same Day Surgery area in a stable condition suffering no known complication.
[2023-03-07 08:13] VITALS: BP 116/70; PULSE 80; RESP 16; TEMP 36.4; O2SAT 95
--- NOTE | 2023-03-07 08:35 | W.ANESPOSTOP ---
Postoperative Evaluation Date, Time and Location Date Performed: 03/07/23 Time Performed: 08:35 Patient Location: Day Surgery Unit Vital Signs Most Recent Imported Vital Signs: Most Recent Vital Signs Temp Pulse Resp BP Pulse Ox 36.4 C L 80 16 116/70 95 03/07/23 08:13 03/07/23 08:13 03/07/23 08:13 03/07/23 08:13 03/07/23 08:13 Pain Score Most Recent Pain Score: Most Recent Pain Score Pain Level 0 03/07/23 08:13 Assessment Mental Status: Awake (Alert & Oriented to Patient Baseline) Airway and Respiratory Function: Patent airway with normal (patient baseline) respiratory exam Cardiovascular Function: Hemodynamically Stable Hydration Status: Adequately Hydrated Nausea & Vomiting: No Nausea or Vomiting Pain: Pt. Denies Any Pain Peripheral Nerve Block: Patient did not receive a nerve block
== END 2023-03-07 08:36 | disposition home or self-care (01) ==
PROVIDERS: PCP Nurse Practitioner Family; Visit Provider Student in an Organized Health Care Education/Training Program
PROC: 01N54ZZ Release Median Nerve, Percutaneous Endoscopic Approach (ICD-10-PCS; CPT 29848; principal; 2023-03-07 07:30)
DX: G56.01 Carpal tunnel syndrome, right upper limb (principal)
CPT/HCPCS: 29848; J0690; J1885; J2001; J2405; J2704

== ENCOUNTER 2023-11-21 07:58 | Day surgery (SDC) | payer OTHER, SELFPAY ==
--- NOTE | 2023-11-21 07:22 | PDOC.DSDIS_ITS ---
Date of service: 11/21/23 Time of Service: 07:22 Discharge Plan Disposition Patient Disposition: Home Condition: Good Discharge Details Reason For Visit: RIF Cyst excision Attending Provider: Neil Kerns Primary Care Provider: Briana Mosqueda Home Meds and New Rx's Prescriptions: New acetaminophen 500 mg tablet 1,000 mg PO TID Qty: 90 0RF ibuprofen 600 mg tablet 600 mg PO TID PRN (Reason: pain) Qty: 90 0RF Continued famotidine 20 mg tablet 20 mg PO BID PRN Discontinued acetaminophen 500 mg tablet 500 mg PO Q6H PRN (Reason: pain) Qty: 60 2RF Discharge Instructions Additional Instructions: Cyst Excision Discharge Instructions Activity: You should keep the hand elevated as much as possible for the first few days. You may use the other fingers as tolerated but avoid trying to do too much too soon. You may perform light activities with the splint in place. Dressing/Cast: You may remove the dressing after three days. At that time you may get the incision wet. You may place a Band-Aid over the incision if desired. Medications: - You should take Tylenol and Ibuprofen for pain control. - You may apply ice over the finger. Follow-up: 7-10 days Referrals: Neil Kerns MD [ [facility] STAFF PHYSICIAN] - Activity:: Activity as Tolerated Remove Dressings/Wound Care:: 72 hours Shower/Bathe:: 72 hours Diet:: As Tolerated Discharge Orders Discharge Orders: Discharge Order (Routine); Ordered 11/21/23 Ordered By: Nicanor Borges
[2023-11-21 08:05] VITALS: BP 137/87; PULSE 88; RESP 16; TEMP 36.8; O2SAT 97
[2023-11-21] MEDS: Sodium Bicarbonate 50 MEQ/50 ML VIAL (09:25)
[2023-11-21] MEDS: Lidocaine 1% Multi-Dose W/EPI 1/100,000 50 ML VIAL (09:25)
[2023-11-21 09:41] VITALS: BP 139/74; PULSE 75; RESP 16; TEMP 36.1; O2SAT 95
--- NOTE | 2023-11-21 17:25 | W.PM.OP ---
Date of service: 11/21/23 Time of Service: 09:20 Operative Note Operative Note DATE OF PROCEDURE: 11/21/23 PRE-OP DIAGNOSIS: Right index finger digital mucous cyst POST-OP DIAGNOSIS: same PROCEDURE: Mucous Cyst Excision -right index finger SURGEON: Neil Kerns ANESTHESIA TYPE: Local By Surgeon Refer to Anesthesia Record ESTIMATED BLOOD LOSS: 5 PATHOLOGY: none sent COMPLICATIONS: None Patient was transported to: same day Patient's condition: stable Indications: I have seen Mary Carmen in clinic for symptoms of a digital mucous cyst. The mass persisted and caused pain to direct contact and with use. The diagnosis of a mucous cyst was made. The symptoms had not responded to conservative measures. I discussed cyst excision with the patient. I reviewed the risks of the procedure to include, but not limited to, bleeding, infection, pain, stiffness, recurrence, damage to nerves or vessels. Despite these risks, the patient elected to proceed. Findings: There was a cyst of the distal phalanx, arising from the DIP joint. The cyst and its capsule was removed and an arthrotomy at the cyst location performed. Procedure Description: Mary Carmen was greeted in the preoperative holding area where the correct side was identified and marked. The consent was reviewed with the patient and signed. All questions were answered. She was taken back to the operating room. The patient was placed into the supine position on the operating room table with the right arm on an arm board. All bony prominences were well padded. No prophylactic antibiotics were administered since this was a clean, elective hand surgical case. The right arm was then prepped with Chloraprep and draped in a standard fashion with stockinette and extremity drape. A timeout to confirm correct identity, side and site, procedure, allergies, anesthesia, and medical concerns was performed. A digital block was then performed using 1% lidocaine with epinephrine and buffered with sodium bicarbonate. This was allowed time to set up completely and was tested before proceeding with the case. A longitudinal incision was then made overlying the cyst. The skin was incised sharply. Full-thickness flaps were then elevated to expose the cyst. The cyst capsule was then removed with a rongeur and followed back towards the DIP joint. The cyst itself was mostly deflated into a significant scar tissue mass. Using the rongeur and a Bloomingrose I was able to penetrate into the DIP joint creating a small arthrotomy from the expected origin of the mucous cyst. The finger was irrigated and once again checked to make sure that all components of the cyst were removed. The skin was then closed using a #4-0 nylon in interrupted fashion. The finger was dressed with Xeroform, 4 x 4, conform dressing. The patient tolerated the procedure well and was returned to the Same Day Surgery area in a stable condition suffering no known complication.
== END 2023-11-21 09:57 | disposition home or self-care (01) ==
LOC: SUR 07:58
PROVIDERS: PCP Nurse Practitioner Family; Visit Provider Student in an Organized Health Care Education/Training Program
PROC: (CPT 26160; principal; 2023-11-21 09:30)
DX: M67.441 Ganglion, right hand (principal)
CPT/HCPCS: 26160; J2004

== ENCOUNTER 2024-02-26 01:43 | Outpatient (CLI) | payer OTHER, SELFPAY ==
--- NOTE | 2024-02-26 08:23 | DI.MAMMO_ITS ---
Exam(s) MAMMO SCREENING EXAM: MAMMO SCREENING CLINICAL HISTORY: screening,z12.39 TECHNIQUE: Bilateral full field digital CC and MLO mammographic images were obtained with 3D tomosyn thesis and utilizing computer aided detection (CAD). COMPARISON: Available for comparison. FINDINGS: Masses/Architectural Distortion: None seen. Microcalcifications: No suspicious pleomorphic-type are seen. Skin Thickening/Nipple Retraction: None. IMPRESSION: 1. No significant interval change with no specific features of malignancy noted. 2. Unless there is more urgent need, screening mammography is recommended, as per [place] [employer] guidelines. BI-RADS Category 1 - Negative Breast Density - Category B - Scattered areas of fibroglandular density Breast density category C or D implies that the patient has dense breast tissue. Dense breast tissue is very common and is not abnormal but dense breast tissue can make it harder to find cancer on a ma mmogram. Also, dense breast tissue may increase their breast cancer risk. This information about the result of the mammogram report was provided to the patient to raise their awareness. Use this report when you speak with the patient about their risks for breast cancer, which includes their family hist ory. At that time, you may recommend for more screening tests (Ultrasound or MRI) as they might be us eful based on their risk. A negative radiographic report should not delay biopsy if a dominant or clinically suspicious mass is present. Up to ten percent of cancers are not identified on mammography. A negative report may reinforce clinical impression. Adenosis and dense breasts may obscure an underlying neoplasm. False positive reports average 6 to 10%. Patient will receive a letter notifying them of these results.
== END 2024-02-26 02:03 ==
LOC: DI 01:44
PROVIDERS: PCP Nurse Practitioner Family; Visit Provider Nurse Practitioner Family
DX: Z12.31 Encounter for screening mammogram for malignant neoplasm of breast (principal); R92.323 Mammographic fibroglandular density, bilateral breasts
CPT/HCPCS: 77063; 77067

== ENCOUNTER 2024-03-14 01:20 | Outpatient (CLI) | payer OTHER, SELFPAY ==
[2024-03-14 07:43] LABS: HCT 41.9 % (36.0-46.0); MCH 29.7 pg (27.0-33.0); MCHC 33.4 % (32.0-36.0); MCV 89 fL (80-95); MPV 8.8 fL (8.0-11.0); Platelet Count 337 10^3/uL (130-400); RBC 4.72 10^6/uL (3.93-5.22); RDW 12.1 % (11.7-14.6); RDW-SD 39.6 fL; WBC 8.27 10^3/uL (4.4-10.8)
[2024-03-14 07:50] LABS: Hemoglobin A1C 6.1 % (<5.7)
[2024-03-14 08:29] LABS: Anion Gap 7.9 mmol/L (3-11); BUN 14 mg/dL (7-18); CO2 29.1 mmol/L (21.0-32.0); CREATININE 0.8 mg/dL (0.55-1.02); Calcium 9.6 mg/dL (8.5-10.1); Calculated LDL 166 mg/dL (<100); Chloride 105 mmol/L (98-107); Cholesterol 238 mg/dL (<200); Glucose 111 mg/dL (74-106); HDL Cholesterol 56 mg/dL (40-60); Potassium 4.1 mmol/L (3.5-5.1); Sodium 142 mmol/L (136-145); Triglyceride 83 mg/dL (<150)
== END 2024-03-14 01:21 | disposition home or self-care (01) ==
PROVIDERS: PCP Nurse Practitioner Family; Visit Provider Nurse Practitioner Family
DX: Z00.00 Encounter for general adult medical examination without abnormal findings (principal); R03.0 Elevated blood-pressure reading, without diagnosis of hypertension; R73.03 Prediabetes; K21.9 Gastro-esophageal reflux disease without esophagitis; N32.81 Overactive bladder; R20.0 Anesthesia of skin
CPT/HCPCS: 36415; 80048; 80061; 85027; 83036